=== PATIENT | female | born 1980 ===

== ENCOUNTER 2018-07-26 11:53 | Emergency (ER) | payer MEDICAID ==
--- NOTE | 2018-07-26 14:33 | OBDCSUM ---
Datetime: 07/26/2018 13:25 Discharged to, Provider: Home Follow up at, Provider: [facility] [place] Disch Instr Activity: Normal activity Disch Instr Diet: Regular Discharge Time: 07/26/2018 13:30 Follow up in weeks, Provider: scheduled Induction 07/27/18 at 1930 Disch Referrals: None Discharge Diagnosis Prov Other: false labor
--- NOTE | 2018-07-26 14:34 | OBHP ---
Datetime: 07/26/2018 13:51 IP Adm Impression: Term, intrauterine IP Admit Plan: Observation/Evaluation; Discharge home Admit Comment, IP Provider: 37 year old Omid at 40.6 weeks presents for abdominal pain. She repor ts that the pain is off and on, every 10 mintues and began at 3am. Denies vaginal bleeding, loss of f luid from the vagina. Endorses good movement. She is a patient of Lambert Ireland and was last see n yesterday; induction scheduled at [facility] tomorrow (07/27). OB: Vanita Ireland PMH: asthma as child, cannot recall last inhaler usage OBHx: ; x1 2014 @ 41 wks EGA Meds: denies Allergies: denies Family Hx: denies Surgical Hx: cosmetic rhinoplasty 2013 Labs: GBS neg, GC/CL neg ROS: all other systems reviewed and negative unless otheriwse noted in HPI PE: VS: WNL Gen: comfortably lying in bed CV: RRR Resp: no respiratory distess Ext: no edema Abd: no tenderness to palpation Skin: no rash SVE: 1/0/-3 A+P: 37 year old at 40.6 weeks presents for abdominal pain. -NST reactive, Cat I -ED precautions given -Recommend follow-up with Lambert Ireland at next scheduled appointment/scheduled IOL Case seen and discussed with Dr Roderick Zhang PGY1 Addendum by Dr. Vaughn: I have evaluated the patient independently and I agree with the above Pelvic Type - PN: Adequate Extremities - PN: Normal Abdomen - PN: Normal Back - PN: Normal Breast - PN: Normal Lungs - PN: Normal Heart - PN: Normal Thyroid - PN: Normal Neurologic - PN: Normal HEENT - PN: Normal General - PN: Normal FHR - Baseline A Provider: 130 Vital Signs Provider: Reviewed; Within Normal Limits IP Chief Complaint: Maternal discomfort NICHD Variability Prov Fetus A: Moderate 6-25bpm NICHD Accel Fetus A IP Provider: [id number] FHR Category Provider Fetus A: Category I NICHD Decel Fetus A IP Provider: None Dilatation, Provider: 1 Effacement, Provider: 0 Station, Provider: -3 Genitourinary Exam: Normal DTRs - PN: Normal
[2018-07-26 20:02] VITALS: BP 125/80; PULSE 82; RESP 18; TEMP 98.6; O2SAT 98
== END 2018-07-26 13:30 | disposition home or self-care (01) ==
LOC: H.EROB2 11:53
DX: O26.93 Pregnancy related conditions, unspecified, third trimester (principal); R10.2 Pelvic and perineal pain; O48.0 Post-term pregnancy; Z3A.40 40 weeks gestation of pregnancy